=== PATIENT | female | born 1970 | race African-American/Black ===

== ENCOUNTER 2016-08-25 21:53 | Emergency (ER) | payer SELFPAY ==
[~2016-08-25] VITALS: Ht 167.6 cm; Wt 82.7 kg
[~2016-08-25 21:53] MED LIST: IBUP800T23 PO; NORV10TA PO
[2016-08-26 00:44] VITALS: BP 177/113; PULSE 82; RESP 20; TEMP 98.8; O2SAT 99
--- NOTE | 2016-08-26 00:51 | PD ---
HPI Chief Complaint: Cold / Flu Symptoms Time Seen by Provider: 00:44 Travel History International Travel<30 days: No (unknown) Contact w/Intl Traveler<30days: No (unknown) History of Present Illness HPI 45yo F with PMH of HTN presents to the ED with c/o nasal congestion, cough, generalized muscleache and facial pain that is now spreading to her ears for 3 days. Denies any fever, chest pain, sob, n/v, abdominal pain, diarrhea, focal weakness or numbness. Took advil with little relieve. Denies any sick contact. PFSH Past Medical History Diminished Hearing: No Headaches: Yes Hypertension: Yes Menopausal: Yes : 2 Para: 2 Ovarian Cysts: Yes Tubal Ligation: Yes Past Surgical History Section: Yes Gynecologic Surgery: Yes Hysterectomy: Yes Social History Alcohol Use: No Tobacco Use: No Substance Use: No Allergies-Medications (Allergen,Severity, Reaction): Coded Allergies: Latex (Verified Allergy, Severe, RASH;THROAT SWELLING, 08/26/16) Reported Meds & Prescriptions Reported Meds & Active Scripts Active No Active Prescriptions or Reported Medications Review of Systems Except as stated in HPI: all other systems reviewed are Neg Physical Exam Narrative GENERAL: 45yo F in mild distress. SKIN: Warm and dry. HEAD: Atraumatic. Normocephalic. +TTP left maxilla. EYES: Pupils equal and round. No scleral icterus. No injection or drainage. ENT: +Edema bilateral nasal turbinates. Throat: Clear. No erythema or exudate. Ears: Right TM wnl. Left TM unable to visualize due to cerumen. NECK: Trachea midline. No JVD. CARDIOVASCULAR: Regular rate and rhythm. No murmur appreciated. RESPIRATORY: No accessory muscle use. Clear to auscultation. Breath sounds equal bilaterally. GASTROINTESTINAL: Abdomen soft, non-tender, nondistended. MUSCULOSKELETAL: No obvious deformities. No clubbing. No cyanosis. No edema. NEUROLOGICAL: Awake and alert. No obvious cranial nerve deficits. Motor grossly within normal limits. Normal speech. PSYCHIATRIC: Appropriate mood and affect; insight and judgment normal. Data Data Last Documented VS Vital Signs Date Time Temp Pulse Resp B/P Pulse Ox O2 Delivery O2 Flow Rate FiO2 08/26/16 01:29 81 18 187/102 99 Room Air 08/26/16 00:44 98.8 Orders Influenzae A/B Antigen (08/26/16 00:49) Acetaminophen (Tylenol) (08/26/16 01:00) Pseudoephedrine (Sudafed) (08/26/16 01:00) Guaifen-Cod 200-20 Mg/10ml Liq (Robituss (08/26/16 01:00) Chest, Single Ap (08/26/16 ) Amlodipine (Norvasc) (08/26/16 02:45) Amlodipine (Norvasc) (08/26/16 02:45) MDM Medical Decision Making Medical Screen Exam Complete: Yes Emergency Medical Condition: Yes Differential Diagnosis URI vs. Sinusitis vs. influenza vs. bronchitis vs. PNA Narrative Course 45yo F with URI like symptoms. Pt has history of HTN and is suppose to be on amlodipine but noncompliant. Influenza negative. Pt given acetaminophen, robitussin and reevaluated after medications. Pt feels better. Return precautions given. Instructed pt to follow up with PMD for treatment of HTN. Will prescribe a few days of amlodipine. Pt is afebrile and not tachycardic. Diagnosis Primary Impression: URI (upper respiratory infection) Qualified Code: J06.9 - Upper respiratory tract infection, unspecified type Patient Instructions: General Instructions Departure Forms: Tests/Procedures Additional Instructions: Please follow up with your PMD in 1-2 days. Return to the ED if symptoms worsen. Med/Other Pt SpecificInfo: Prescription(s) given Scripts Amlodipine 10 Mg Tab10 Mg PO DAILY 10 Days Ref 0 Prov:Flori Villalobos DO 08/26/16 Dextromethorphan Polistirex Liq (Robitussin 12 Hour Cough Liq)30 Mg/5 Ml Sus5 Ml PO Q12H PRN (COUGH) 5 Days Ref 0 Prov:Flori Villalobos DO 08/26/16 Acetaminophen 325 Mg Mov930 Mg PO Q6HR PRN (PAIN SCALE 1 TO 4) #20 TAB Prov:Flori Villalobos DO 08/26/16 Fluticasone Nasal [place] (Flonase Allergy Relief Nasal [place])50 Mcg/Act Spray50 Mcg EACH NARE BID #1 BOTTLE Ref 0 Prov:Flori Villalobos DO 08/26/16 Disposition: 01 DISCHARGE HOME Condition: Stable Flori Villalobos DO Aug 26, 2016 00:51
[2016-08-26] MEDS ORDERED: PSEUDOEPHEDRINE HCL 30 MG TAB PO ONE (01:00)
[2016-08-26] MEDS ORDERED: ACETAMINOPHEN 325 MG TAB PO ONE (01:00)
[2016-08-26] MEDS ORDERED: guaiFENesin/CODEINE SYRUP 200 MG/20 MG/10 ML CUP PO ONE (01:00)
[2016-08-26 01:29] VITALS: BP 187/102; PULSE 81; RESP 18; O2SAT 99
[2016-08-26 01:50] VITALS: BP 197/109
--- NOTE | 2016-08-26 02:04 | RADHPO ---
EXAM DATE/TIME: 08/26/2016 00:59 [facility] COMPARISON: No previous studies available for comparison. INDICATIONS : Cough, chest congestion for 3 days MEDICAL HISTORY : None. SURGICAL HISTORY : None. ENCOUNTER: Initial ACUITY: 1 day PAIN SCORE: 0/10 LOCATION: Bilateral chest FINDINGS: A single view of the chest demonstrates the lungs to be symmetrically aerated without evidence of mas s, infiltrate or effusion. The cardiomediastinal contours are unremarkable. Osseous structures are intact. CONCLUSION: No acute disease. Eriberto Zhu MD on August 26, 2016 at 2:02 Board Certified Radiologist. This report was verified electronically.
[2016-08-26 02:30] VITALS: BP 183/108
[2016-08-26] MEDS ORDERED: amLODIPine BESYLATE 5 MG TAB PO ONE (02:45)
[2016-08-26] MEDS ORDERED: FLUT1SPR5 EACH NARE (02:46)
[2016-08-26] MEDS ORDERED: ACET325T PO (02:46)
[2016-08-26] MEDS ORDERED: DEXT1SUS PO (02:46)
[2016-08-26] MEDS ORDERED: AMLO10TA2 PO (02:47)
[2016-08-26 02:50] VITALS: BP 186/103
== END 2016-08-26 03:14 | disposition home or self-care (01) ==
LOC: PHED 21:53
DX: J06.9 Acute upper respiratory infection, unspecified (principal)
CPT/HCPCS: 71010; 87804; 99283

== ENCOUNTER 2017-02-28 14:47 | Emergency (ER) | payer SELFPAY ==
[2017-02-28] VITALS (8 sets, daily range): BP systolic 167–196; BP diastolic 89–105; PULSE 58–68; RESP 18–20; TEMP 98.3; O2SAT 97–100
[~2017-02-28 14:47] MED LIST changes: +ACET325T PO; +AMLO10TA2 PO; +DEXT1SUS PO; +FLUT1SPR5 EACH NARE; -IBUP800T23 PO; -NORV10TA PO
--- NOTE | 2017-02-28 15:09 | PD ---
HPI Chief Complaint: Chest Pain Time Seen by Provider: 15:00 Travel History International Travel<30 days: No Contact w/Intl Traveler<30days: No Traveled to known affect area: No History of Present Illness HPI 46 year old female with history of hypertension, noncompliant with Norvasc, here for evaluation of chest pain. The patient reports having chest pain for the last 3 days which has been intermittent, left-sided, described as feeling as though her left chest is caving in, worse with inspiration and palpation. The patient is also reporting feeling numbness in the fingers of bilateral hands. She denies any known history of CAD. There is family history of CAD. She denies fevers, chills, cough, or recent illness. No motor deficits. No history of DVT or PE. PFSH Past Medical History Cardiovascular Problems: Yes (HTN) Diminished Hearing: No Headaches: Yes Hypertension: Yes Pneumonia: Yes ?: Not Menopausal: Yes : 2 Para: 2 Ovarian Cysts: Yes Tubal Ligation: Yes Past Surgical History Section: Yes (X2) Gynecologic Surgery: Yes Hysterectomy: Yes Social History Alcohol Use: No Tobacco Use: No Substance Use: No Allergies-Medications (Allergen,Severity, Reaction): Coded Allergies: Latex (Verified Allergy, Severe, RASH;THROAT SWELLING, 08/26/16) Reported Meds & Prescriptions Reported Meds & Active Scripts Active Amlodipine (Amlodipine Besylate) 10 Mg Tab 10 Mg PO DAILY 10 Days Robitussin 12 Hour Cough Liq (Dextromethorphan Polistirex Liq) 30 Mg/5 Ml [place] 5 Ml PO Q12H PRN 5 Days Acetaminophen 325 Mg Tab 650 Mg PO Q6HR PRN Flonase Allergy Relief Nasal [place] (Fluticasone Nasal [place]) 50 Mcg/Act [place] 50 Mcg EACH NARE BID Review of Systems Except as stated in HPI: all other systems reviewed are Neg Physical Exam Narrative GENERAL: Well-developed, well-nourished, appears anxious, SKIN: Focused skin assessment warm/dry. HEAD: Atraumatic. Normocephalic. EYES: Pupils equal and round. No scleral icterus. No injection or drainage. ENT: Mucous membranes pink and moist. NECK: Trachea midline. No JVD. CARDIOVASCULAR: Regular rate and rhythm. No murmur appreciated. Distal pulses brisk and equal bilaterally. RESPIRATORY: No accessory muscle use. Clear to auscultation. Breath sounds equal bilaterally. GASTROINTESTINAL: Abdomen soft, non-tender, nondistended. MUSCULOSKELETAL: No obvious deformities. No clubbing. No cyanosis. No edema. Left anterior chest wall tenderness without step-off, without crepitus, without paradoxical chest wall movement. NEUROLOGICAL: Awake and alert. No obvious cranial nerve deficits. Motor grossly within normal limits. Normal speech. No focal deficits. PSYCHIATRIC: Appropriate mood and affect; insight and judgment normal. Data Data Last Documented VS Vital Signs Date Time Temp Pulse Resp B/P Pulse Ox O2 Delivery O2 Flow Rate FiO2 02/28/17 18:09 64 185/103 100 02/28/17 15:05 98.3 20 Orders Basic Metabolic Panel (Bmp) (02/28/17 15:06) Ckmb (Isoenzyme) Profile (02/28/17 15:06) Complete Blood Count With Diff (02/28/17 15:06) D-Dimer (02/28/17 15:06) Magnesium (Mg) (02/28/17 15:06) Prothrombin Time / Inr (Pt) (02/28/17 15:06) Act Partial Throm Time (Ptt) (02/28/17 15:06) Troponin I (02/28/17 15:06) Chest, Single Ap (02/28/17 15:06) Ecg Monitoring (02/28/17 15:06) Bilateral Bp Monitoring (02/28/17 15:06) Iv Access Insert/Monitor (02/28/17 15:06) Oximetry (02/28/17 15:06) Oxygen Administration (02/28/17 15:06) Aspirin Chew (Aspirin Chew) (02/28/17 15:15) Sodium Chloride 0.9% Flush (Ns Flush) (02/28/17 15:15) Nitroglycerin Sl (Nitrostat Sl) (02/28/17 15:15) Beta Hcg (Quant/Titer) (02/28/17 15:06) Acetaminophen (Tylenol) (02/28/17 15:45) CKMB (02/28/17 15:02) CKMB% (02/28/17 15:02) Electrocardiogram (02/28/17 14:57) Troponin I (02/28/17 18:00) Amlodipine (Norvasc) (02/28/17 17:15) Labs Laboratory Tests Test 02/28/17 02/28/17 15:02 18:05 White Blood Count 8.2 TH/MM3 Red Blood Count 4.57 MIL/MM3 Hemoglobin 12.6 GM/DL Hematocrit 37.9 % Mean Corpuscular Volume 82.9 FL Mean Corpuscular Hemoglobin 27.6 PG Mean Corpuscular Hemoglobin 33.3 % Concent Red Cell Distribution Width 14.5 % Platelet Count 272 TH/MM3 Mean Platelet Volume 9.1 FL Neutrophils (%) (Auto) 49.3 % Lymphocytes (%) (Auto) 40.0 % Monocytes (%) (Auto) 7.2 % Eosinophils (%) (Auto) 2.9 % Basophils (%) (Auto) 0.6 % Neutrophils # (Auto) 4.1 TH/MM3 Lymphocytes # (Auto) 3.3 TH/MM3 Monocytes # (Auto) 0.6 TH/MM3 Eosinophils # (Auto) 0.2 TH/MM3 Basophils # (Auto) 0.0 TH/MM3 CBC Comment DIFF FINAL Differential Comment Prothrombin Time 10.0 SEC Prothromb Time International 0.9 RATIO Ratio Activated Partial 26.8 SEC Thromboplast Time D-Dimer Quantitative (PE/DVT) 0.25 MG/L FEU Sodium Level 143 MEQ/L Potassium Level 3.3 MEQ/L Chloride Level 106 MEQ/L Carbon Dioxide Level 29.8 MEQ/L Anion Gap 7 MEQ/L Blood Urea Nitrogen 12 MG/DL Creatinine 0.73 MG/DL Estimat Glomerular Filtration 104 ML/MIN Rate Random Glucose 85 MG/DL Calcium Level 8.3 MG/DL Magnesium Level 2.1 MG/DL Total Creatine Kinase 627 U/L Creatine Kinase MB 8.1 NG/ML Creatine Kinase MB % 1.3 % Troponin I LESS THAN 0.02 LESS THAN 0.02 NG/ML NG/ML Human Chorionic Gonadotropin, 2 MIU/ML Quant MDM Medical Decision Making Medical Screen Exam Complete: Yes Emergency Medical Condition: Yes Interpretation(s) EKG: Sinus, rate 60, leftward axis, LVH, no acute ischemic abnormality. Differential Diagnosis ACS, pneumothorax, pericarditis, PE, pneumonia, musculoskeletal pain, hypertensive crisis, anxiety, metabolic abnormality Narrative Course Vital signs reviewed. Initial blood pressure was 196/100 which improved to 167/ 91 after one sublingual nitroglycerin. CBC is unremarkable. BMP is remarkable for potassium 3.3, otherwise unremarkable. Cardiac enzymes are negative. D-dimer is negative at 0.5. Chest x-ray: No acute disease. On reassessment the patient is sleeping comfortably. She states her pain has improved. It is somewhat reproducible with palpation and movement. Plan is to perform a delta troponin, and if negative, the patient can follow-up as an outpatient for further workup. Delta troponin 3 hours after the first is also negative. Patient was reassessed and is again sleeping comfortably. Patient made aware of all findings. Again her pain is very reproducible on exam. I do not believe her pain is cardiopulmonary in nature. Patient is also notably hypertensive and has signs of LVH on her EKG. Her symptoms are not consistent with a hypertensive crisis. She has been noncompliant with her amlodipine which I will re-prescribe her. Patient is stable for discharge home with outpatient follow-up with a primary care physician this week per she was informed on when to return to the emergency department. She verbalizes understanding and agreement with plan. Diagnosis Primary Impression: Atypical chest pain Additional Impression: Hypertension Qualified Code: I10 - Hypertension, unspecified type Referrals: [facility] 3 days Primary Care Physician 3 days Additional Instructions: Follow-up with a primary care physician this week. Return to the emergency department for worsening symptoms or any other concerns. Scripts Amlodipine 10 Mg Tab10 Mg PO DAILY #30 TAB Ref 0 Prov:Ravi Cox MD 02/28/17 Disposition: 01 DISCHARGE HOME Condition: Stable Ravi Cox MD Feb 28, 2017 15:09
[2017-02-28] MEDS ORDERED: SODIUM CHLORIDE 0.9% FLUSH 10 ML FLUSH IVF PRN (15:15)
[2017-02-28] MEDS ORDERED: ASPIRIN 81 MG CHEW TAB PO ONE (15:15)
[2017-02-28] MEDS: NITROGLYCERIN 0.4 MG SL 25 TABS/BTL SL SCH ×3 (15:20→15:25)
--- NOTE | 2017-02-28 15:36 | RADRPT ---
EXAM DATE/TIME: 02/28/2017 15:16 [facility] COMPARISON: CHEST SINGLE AP, August 26, 2016, 0:59. INDICATIONS : Chest pain. MEDICAL HISTORY : None. SURGICAL HISTORY : None. ENCOUNTER: Initial ACUITY: 4 - 6 days PAIN SCORE: 4/10 LOCATION: Left chest FINDINGS: A single view of the chest demonstrates the lungs to be symmetrically aerated without evidence of mas s, infiltrate or effusion. Chronic elevation of the right hemidiaphragm. The cardiomediastinal conto urs are unremarkable. Osseous structures are intact. CONCLUSION: No acute disease. Antoni Ibrahim Jr., MD on February 28, 2017 at 15:35 Board Certified Radiologist. This report was verified electronically.
[2017-02-28] MEDS ORDERED: ACETAMINOPHEN 325 MG TAB PO ONE (15:45)
[2017-02-28 16:19] LABS: AUTOMATED NEUTROPHIL # 4.1 TH/MM3 (1.8-7.7); BASOPHIL % 0.6 % (0.0-2.0); EOSINOPHIL # 0.2 TH/MM3 (0-0.4); EOSINOPHIL % 2.9 % (0.0-4.0); HEMATOCRIT 37.9 % (35.0-46.0); HEMO FLAGS DIFF FINAL; LYMPHOCYTE # 3.3 TH/MM3 (1.0-4.8); MEAN CELL VOLUME 82.9 FL (80.0-100.0); MEAN CORPUSCULAR HEMOGLOBIN 27.6 PG (27.0-34.0); MEAN CORPUSCULAR HGB CONC 33.3 % (32.0-36.0); MONO % 7.2 % (0.0-8.0); NEUT % 49.3 % (16.0-70.0); PLATELET COUNT 272 TH/MM3 (150-450); RED BLOOD COUNT 4.57 MIL/MM3 (4.00-5.30); RED CELL DISTRIBUTION WIDTH 14.5 % (11.6-17.2); WHITE BLOOD COUNT 8.2 TH/MM3 (4.0-11.0)
[2017-02-28 16:29] LABS: CHLORIDE 106 MEQ/L (98-107); POTASSIUM 3.3 MEQ/L (3.5-5.1); SODIUM (NA) 143 MEQ/L (136-145)
[2017-02-28 16:32] LABS: ANION GAP 7 MEQ/L (5-15); BICARBONATE 29.8 MEQ/L (21.0-32.0); BLOOD UREA NITROGEN 12 MG/DL (7-18); MAGNESIUM 2.1 MG/DL (1.5-2.5)
[2017-02-28 16:36] LABS: GLOMERULAR FILTRATION RATE 104 ML/MIN (>89)
[2017-02-28 16:39] LABS: CREATINE KINASE 627 U/L (26-192)
[2017-02-28 16:40] LABS: APTT (PATIENT) 26.8 SEC (24.3-30.1); BETA HCG QUANT 2 MIU/ML (0-5); INTERNATIONAL NORMALIZED RATIO 0.9 RATIO
[2017-02-28 16:51] LABS: CKMB 8.1 NG/ML (0.5-3.6)
[2017-02-28] MEDS ORDERED: AMLO10TA2 PO (19:04)
--- NOTE | 2017-03-01 19:08 | EKG ---
Date Performed: 02/28/2017 Time Performed: 14:57:00 PTAGE: 46 years EKG: Sinus rhythm MODERATE VOLTAGE CRITERIA FOR LVH, CONSIDER NORMAL VARIANT BORDERLINE ECG INTERPRETATION BASED ON A DEFAULT AGE OF 40 YEARS Compared to the PREVIOUS TRACING from 05/21/08, voltage criteria for LVH is new DOCTOR: Mina Lincoln Interpretating Date/Time 03/01/2017 19:06:47
== END 2017-02-28 19:43 | disposition home or self-care (01) ==
LOC: PHED 14:47
DX: R07.89 Other chest pain (principal); I10 Essential (primary) hypertension; R20.0 Anesthesia of skin
CPT/HCPCS: 71010; 80048; 82550; 82552; 83735; 84484; 84702; 85025; 85379; 85610; 85730; 93005; 99285

== ENCOUNTER 2017-05-23 22:35 | Emergency (ER) | payer SELFPAY ==
[~2017-05-23] VITALS: Ht 167.6 cm; Wt 77.0 kg
[2017-05-23 22:38] VITALS: BP 209/104; PULSE 70; RESP 16; TEMP 97.7; O2SAT 98
[2017-05-23 23:32] VITALS: BP 209/104; PULSE 70; RESP 16; TEMP 97.7; O2SAT 98
[2017-05-23] MEDS ORDERED: ACETAMINOPHEN/HYDROcodone 325 MG/5 MG TAB PO ONE (23:45)
--- NOTE | 2017-05-23 23:45 | PD ---
HPI Chief Complaint: Pain: Acute or Chronic Time Seen by Provider: 23:33 Travel History International Travel<30 days: No Contact w/Intl Traveler<30days: No History of Present Illness HPI 46 yo F c/o L knee pain x 1 day. Pt denies trauma. 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 No swelling/warmth/induration. Timing constant. Pain gradually worsening. Pain worse with ROM and palpation. PFSH Past Medical History Cardiovascular Problems: Yes (HTN) Diminished Hearing: No Headaches: Yes Hypertension: Yes Pneumonia: Yes Menopausal: Yes : 2 Para: 2 Ovarian Cysts: Yes Tubal Ligation: Yes Past Surgical History Section: Yes (X2) Gynecologic Surgery: Yes Hysterectomy: Yes Social History Alcohol Use: No Tobacco Use: No Substance Use: No Allergies-Medications (Allergen,Severity, Reaction): Coded Allergies: latex (Unverified Allergy, Severe, RASH;THROAT SWELLING, 05/23/17) Reported Meds & Prescriptions Reported Meds & Active Scripts Active Amlodipine (Amlodipine Besylate) 10 Mg Tab 10 Mg PO DAILY Amlodipine (Amlodipine Besylate) 10 Mg Tab 10 Mg PO DAILY 10 Days Flonase Nasal [place] (Fluticasone Nasal [place]) 50 Mcg/Act [place] 50 Mcg EACH NARE BID Review of Systems General / Constitutional: No: Fever Physical Exam Narrative GENERAL: 46 yo F, WNWD SKIN: Warm and dry. HEAD: Normocephalic. EYES: No scleral icterus. No injection or drainage. NECK: Supple, trachea midline. No JVD or lymphadenopathy. GASTROINTESTINAL: Abdomen soft, non-tender, nondistended. MUSCULOSKELETAL: Diffuse TTP. no warmth. Pain with active/passive ROM. No induration/inflammatory change. Trace suprapatellar effusion. No sign of DVT. Data Data Last Documented VS Vital Signs Date Time Temp Pulse Resp B/P (MAP) Pulse Ox O2 Delivery O2 Flow Rate FiO2 05/23/17 22:38 97.7 70 16 209/104 (139) 98 VS reviewed Orders Orders ^ Knee Immobilizer (05/23/17 23:36) Acetamin-Hydrocod 325-5 Mg ([place] 5-325 (05/23/17 23:45) MDM Medical Decision Making Medical Screen Exam Complete: Yes Emergency Medical Condition: Yes Medical Record Reviewed: Yes Differential Diagnosis hemarthrosis, fracture, suprapatellar effusion, internal derangement of knee Narrative Course septic arthritis unlikely fracture unlikely small suprapatellar swelling with tenderness no warmth/erythema pain control knee immobilizer return precautions discussed Diagnosis Primary Impression: Knee effusion, left Admitting Information Admitting Physician Requests: Observation Jourdan iLncoln MD May 23, 2017 23:45
[2017-05-23] MEDS ORDERED: HYDR-3533 PO (23:46)
[2017-05-24 00:57] VITALS: RESP 18
== END 2017-05-24 00:58 | disposition home or self-care (01) ==
LOC: PHED 22:35
DX: M25.462 Effusion, left knee (principal); M25.562 Pain in left knee; I10 Essential (primary) hypertension
CPT/HCPCS: 99282

== ENCOUNTER 2018-01-15 11:14 | Emergency (ER) | payer SELFPAY ==
[~2018-01-15] VITALS: Ht 167.6 cm; Wt 85.0 kg
[~2018-01-15 11:14] MED LIST changes: -ACET325T PO; -DEXT1SUS PO; +HYDR-3533 PO
[2018-01-15 11:20] VITALS: BP 206/98; PULSE 72; RESP 16; TEMP 98.3; O2SAT 97
--- NOTE | 2018-01-15 11:29 | PD ---
HPI Chief Complaint: Headache Time Seen by Provider: 11:25 Travel History International Travel<30 days: No Contact w/Intl Traveler<30days: No Traveled to known affect area: No History of Present Illness HPI Plan of generalized headache, 7 out of 10, nonradiating, onset since this morning, not improving with home or sovv-oov-dvnvikd medications such as Tylenol and Motrin. Patient denies any alleviating or aggravating factors. Patient states that she no longer has a primary care and she has had difficulty controlling her blood pressure, she is currently on lisinopril 10 mg p.o. once daily which is not working very well. Patient denies associated factors such as fever, rash, neck pain, neck stiffness, chest pain, abdominal pain, flank pain, back pain, Stated allergy to latex Past medical history significant for headaches, hypertension, pneumonia, ovarian cyst, hysterectomy PFSH Past Medical History Cardiovascular Problems: Yes (HTN) Diminished Hearing: No Headaches: Yes Hypertension: Yes Pneumonia: Yes ?: Not Menopausal: Yes : 2 Para: 2 Ovarian Cysts: Yes Tubal Ligation: Yes Past Surgical History Section: Yes (X2) Gynecologic Surgery: Yes Hysterectomy: Yes Social History Alcohol Use: No Tobacco Use: No Substance Use: No Allergies-Medications (Allergen,Severity, Reaction): Coded Allergies: latex (Unverified Allergy, Severe, RASH;THROAT SWELLING, 01/15/18) Reported Meds & Prescriptions Reported Meds & Active Scripts Active Amlodipine (Amlodipine Besylate) 10 Mg Tab 10 Mg PO DAILY Amlodipine (Amlodipine Besylate) 10 Mg Tab 10 Mg PO DAILY 10 Days Flonase Nasal [place] (Fluticasone Nasal [place]) 50 Mcg/Act [place] 50 Mcg EACH NARE BID Reported Lisinopril 10 Mg Tab 10 Mg PO DAILY Review of Systems General / Constitutional: No: Fever Eyes: No: Visual changes HENT: Positive: Headaches Cardiovascular: No: Chest Pain or Discomfort Respiratory: No: Shortness of Breath Gastrointestinal: No: Abdominal Pain Genitourinary: No: Dysuria Musculoskeletal: No: Pain Skin: No Rash Neurologic: No: Weakness Psychiatric: No: Depression Endocrine: No: Polydipsia Hematologic/Lymphatic: No: Easy Bruising Physical Exam Narrative GENERAL: SKIN: Warm and dry. HEAD: Atraumatic. Normocephalic. EYES: Pupils equal and round. No scleral icterus. No injection or drainage. ENT: No nasal bleeding or discharge. Mucous membranes pink and moist. NECK: Trachea midline. No JVD. CARDIOVASCULAR: Regular rate and rhythm. RESPIRATORY: No accessory muscle use. Clear to auscultation. Breath sounds equal bilaterally. GASTROINTESTINAL: Abdomen soft, non-tender, nondistended. MUSCULOSKELETAL: Extremities without clubbing, cyanosis, or edema. No obvious deformities. NEUROLOGICAL: Awake and alert. No obvious cranial nerve deficits. Motor grossly within normal limits. Five out of 5 muscle strength in the arms and legs. Normal speech. PSYCHIATRIC: Appropriate mood and affect; insight and judgment normal. Data Data Last Documented VS Vital Signs Date Time Temp Pulse Resp B/P (MAP) Pulse Ox O2 Delivery O2 Flow Rate FiO2 01/15/18 12:05 82 16 171/94 (119) 100 Room Air 01/15/18 11:20 98.3 Orders Orders Electrocardiogram (01/15/18 11:25) Complete Blood Count With Diff (01/15/18 11:25) Comprehensive Metabolic Panel (01/15/18 11:25) Troponin I (01/15/18 11:25) Lipase (01/15/18 11:25) Thyroid Stimulating Hormone (01/15/18 11:25) Ct Brain W/O Iv Contrast(Rout) (01/15/18 11:25) Hydralazine Inj (Apresoline Inj) (01/15/18 11:30) Prochlorperazine Inj (Compazine Inj) (01/15/18 11:30) Diphenhydramine Inj (Benadryl Inj) (01/15/18 11:30) Clonidine (Catapres) (01/15/18 13:15) Labs Laboratory Tests Test 01/15/18 11:45 White Blood Count 6.4 TH/MM3 Red Blood Count 4.42 MIL/MM3 Hemoglobin 12.1 GM/DL Hematocrit 36.0 % Mean Corpuscular Volume 81.6 FL Mean Corpuscular Hemoglobin 27.3 PG Mean Corpuscular Hemoglobin Concent 33.5 % Red Cell Distribution Width 13.7 % Platelet Count 245 TH/MM3 Mean Platelet Volume 8.4 FL Neutrophils (%) (Auto) 49.4 % Lymphocytes (%) (Auto) 39.9 % Monocytes (%) (Auto) 7.3 % Eosinophils (%) (Auto) 2.7 % Basophils (%) (Auto) 0.7 % Neutrophils # (Auto) 3.1 TH/MM3 Lymphocytes # (Auto) 2.6 TH/MM3 Monocytes # (Auto) 0.5 TH/MM3 Eosinophils # (Auto) 0.2 TH/MM3 Basophils # (Auto) 0.0 TH/MM3 CBC Comment DIFF FINAL Differential Comment Blood Urea Nitrogen 13 MG/DL Creatinine 0.68 MG/DL Random Glucose 87 MG/DL Total Protein 7.0 GM/DL Albumin 3.6 GM/DL Calcium Level 8.8 MG/DL Alkaline Phosphatase 102 U/L Aspartate Amino Transf (AST/SGOT) 18 U/L Alanine Aminotransferase (ALT/SGPT) 29 U/L Total Bilirubin 0.4 MG/DL Sodium Level 144 MEQ/L Potassium Level 3.3 MEQ/L Chloride Level 111 MEQ/L Carbon Dioxide Level 27.9 MEQ/L Anion Gap 5 MEQ/L Estimat Glomerular Filtration Rate 112 ML/MIN Troponin I LESS THAN 0.02 NG/ML Lipase 107 U/L Thyroid Stimulating Hormone 3rd Gen 1.150 uIU/ML MDM Medical Decision Making Medical Screen Exam Complete: Yes Emergency Medical Condition: Yes Medical Record Reviewed: Yes Interpretation(s) EKG shows normal sinus rhythm, 61 bpm, normal intervals, LVH, no evidence of any ST elevation NM. Differential Diagnosis Intracranial hemorrhage versus hypertensive bleed versus NM versus hypertensive emergency versus Narrative Course CBC shows no leukocytosis, no anemia, normal platelet count, no left shift Electrolytes are within normal limits, normal kidney functions, normal liver functions, normal pancreatic functions, normal TSH screen, negative first set of cardiac enzymes CT head read by radiologist as negative noncontrast head CT Diagnosis Primary Impression: Cephalgia Qualified Codes: R51 - Headache Additional Impression: Hypertensive urgency Referrals: [facility] Patient Instructions: Acute Headache (ED), General Instructions, Hypertension ( DC) Scripts Amlodipine (Amlodipine) 10 Mg Tab 10 MG PO DAILY for Blood Pressure Management, #30 TAB 1 Refill Prov: Cornell Chappell MD 01/15/18 Disposition: 01 DISCHARGE HOME Condition: Stable Cornell Chappell MD Jan 15, 2018 11:29
[2018-01-15] MEDS ORDERED: PROCHLORPERAZINE INJ 10 MG/2 ML VIAL IV PUSH ONE (11:30)
[2018-01-15] MEDS ORDERED: diphenhydrAMINE HCL 50 MG/ML VIAL IV PUSH ONE (11:30)
[2018-01-15] MEDS ORDERED: hydrALAZINE HCL 20 MG/ML VIAL IV PUSH ONE (11:30)
[2018-01-15] MEDS ORDERED: LISI10TA3 PO (11:39)
[2018-01-15 11:53] VITALS: BP 175/74; PULSE 69; RESP 16; O2SAT 100
[2018-01-15 11:57] LABS: AUTOMATED NEUTROPHIL # 3.1 TH/MM3 (1.8-7.7); BASOPHIL % 0.7 % (0.0-2.0); EOSINOPHIL # 0.2 TH/MM3 (0-0.4); EOSINOPHIL % 2.7 % (0.0-4.0); HEMOGLOBIN 12.1 GM/DL (11.6-15.3); LYMPH % 39.9 % (9.0-44.0); LYMPHOCYTE # 2.6 TH/MM3 (1.0-4.8); MEAN CELL VOLUME 81.6 FL (80.0-100.0); MEAN CORPUSCULAR HEMOGLOBIN 27.3 PG (27.0-34.0); MEAN CORPUSCULAR HGB CONC 33.5 % (32.0-36.0); MEAN PLATELET VOLUME 8.4 FL (7.0-11.0); MONO % 7.3 % (0.0-8.0); MONOCYTE # 0.5 TH/MM3 (0-0.9); NEUT % 49.4 % (16.0-70.0); PLATELET COUNT 245 TH/MM3 (150-450); RED BLOOD COUNT 4.42 MIL/MM3 (4.00-5.30); RED CELL DISTRIBUTION WIDTH 13.7 % (11.6-17.2); WHITE BLOOD COUNT 6.4 TH/MM3 (4.0-11.0)
[2018-01-15 12:05] VITALS: BP 171/94; PULSE 82; RESP 16; O2SAT 100
[2018-01-15 12:10] LABS: CHLORIDE 111 MEQ/L (98-107); SODIUM (NA) 144 MEQ/L (136-145)
[2018-01-15 12:13] LABS: ALBUMIN 3.6 GM/DL (3.4-5.0); BICARBONATE 27.9 MEQ/L (21.0-32.0); BLOOD UREA NITROGEN 13 MG/DL (7-18); CALCIUM 8.8 MG/DL (8.5-10.1); GLUCOSE,RANDOM 87 MG/DL (74-106)
[2018-01-15 12:16] LABS: ALT (GPT) 29 U/L (10-53); AST (GOT) 18 U/L (15-37); CREATININE 0.68 MG/DL (0.50-1.00); GLOMERULAR FILTRATION RATE 112 ML/MIN (>89)
[2018-01-15 12:18] LABS: TOTAL BILIRUBIN ADULT 0.4 MG/DL (0.2-1.0)
[2018-01-15 12:19] LABS: ALKALINE PHOSPHATASE 102 U/L (45-117)
[2018-01-15 12:21] LABS: TROPONIN I LESS THAN 0.02 NG/ML (0.02-0.05)
--- NOTE | 2018-01-15 12:49 | RADRPT ---
EXAM DATE: 01/15/2018 12:46 PM EDT AGE/SEX: 47 years / Female INDICATIONS: Headache, hypertension, and upper extremity tingling. CLINICAL DATA: This is the patient's initial encounter. Patient reports that signs and symptoms have been present for 1 day and indicates a pain score of 5/10. MEDICAL/SURGICAL HISTORY: Hypertension. Tubal ligation. Hysterectomy. section. RADIATION DOSE: 53.08 CTDI (mGy) COMPARISON: [facility], CT BRAIN W/O CONTRAST, 08/17/2015. . TECHNIQUE: CT of the head without contrast. Using automated exposure control and adjustment of the mA and/or kV according to patient size, radiation dose was kept as low as reasonably achievable to ob tain optimal diagnostic quality images. FINDINGS: Cerebrum: The ventricles are normal for age. No evidence of midline shift, mass lesion, hemorrhage or acute infarction. No extraaxial fluid collections are seen. Posterior Fossa: The cerebellum and brainstem are intact. The 4th ventricle is midline. The cerebe llopontine angle is unremarkable. Extracranial: The visualized portion of the orbits is intact. Skull: The calvaria is intact. No evidence of skull fracture. CONCLUSION: Negative noncontrast head CT. Electronically signed by: Stoney Blackwood MD 01/15/2018 12:48 PM EDT
[2018-01-15] MEDS ORDERED: cloNIDine HCL 0.1 MG TAB PO ONE (13:15)
[2018-01-15] MEDS ORDERED: AMLO10TA2 PO (13:20)
[2018-01-15 13:21] VITALS: BP 179/99; PULSE 67; RESP 18; O2SAT 99
[2018-01-15 14:08] VITALS: BP 173/87
--- NOTE | 2018-01-16 09:39 | EKG ---
Date Performed: 01/15/2018 Time Performed: 11:37:15 PTAGE: 47 years EKG: Sinus rhythm POSSIBLE RIGHT VENTRICULAR CONDUCTION DELAY MODERATE VOLTAGE CRITERIA FOR LVH, CONSIDER NORMAL VARIA NT BORDERLINE ECG PREVIOUS TRACING : 02/28/2017 14.57 Since the previous tracing, no significant change noted DOCTOR: Eliezer Perrin Interpretating Date/Time 01/16/2018 09:38:01
== END 2018-01-15 14:10 | disposition home or self-care (01) ==
LOC: PHED 11:14
DX: R51 Headache (principal); I10 Essential (primary) hypertension; Z79.899 Other long term (current) drug therapy; Z87.01 Personal history of pneumonia (recurrent)
CPT/HCPCS: 70450; 80053; 83690; 84443; 84484; 85025; 93005; 96374; 96375; 99285; J0360; J0780; J1200